=== PATIENT | female | born 1990 | race Hispanic/Latino ===

== ENCOUNTER 2017-01-07 20:25 | Emergency (ER) | payer BC ==
[2017-01-07 21:05] VITALS: BP 189/99; PULSE 94; RESP 18; TEMP 98; O2SAT 100
--- NOTE | 2017-01-07 22:49 | ED PDOC ---
Lower Extremity Pain/Injury Time Seen by Provider: 01/07/17 22:39 Chief Complaint (Nursing): Lower Extremity Problem/Injury Chief Complaint (Provider): right leg pain History Per: Patient Additional Complaint(s): 26-year-old female presents to emergency Department with complaints of right hip pain. Patient states 5 days ago she slipped and fell [place]. Patient felt a pop in her right hip and has had pain since then. Tylenol does help the pain somewhat. Patient able to walk and bear weight but has pain when doing so. She keeps hearing clicking sensation to right hip. Past Medical History Reviewed: Historical Data, Nursing Documentation, Vital Signs Vital Signs: Last Vital Signs Temp 98 F 01/07/17 21:02 Pulse 94 H 01/07/17 21:02 Resp 18 01/07/17 21:02 BP 189/99 H 01/07/17 21:02 Pulse Ox 100 01/07/17 21:02 - Medical History PMH: No Chronic Diseases - Surgical History Other surgeries: bilateral bunionectomies - Family History Family History: States: No Known Family Hx - Living Arrangements Living Arrangements: With Friends/Others - Social History Current smoker - smoking cessation education provided: No Alcohol: None Drugs: Denies - Allergies Allergies/Adverse Reactions: Allergies Allergy/AdvReac Type Severity Reaction Status Date / Time No Known Allergies Allergy Verified 01/07/17 21:02 Wells Criteria for PE - Wells Criteria for Pulmonary Embolism Clinical Signs and Symptoms of DVT: No P.E is #1 Diagnosis, or Equally Likely: No Heart Rate >100: No Immobilization at least 3 days;Surgery previous 4 weeks: No Previous, objectively diagnosed PE or DVT: No Hemoptysis: No Malignancy w/treatment within 6 months, or palliative: No Total Score: 0 Review of Systems ROS Statement: Except As Marked, All Systems Reviewed And Found Negative Musculoskeletal: Positive for: Other (right hip injury) Physical Exam - Reviewed Nursing Documentation Reviewed: Yes Vital Signs Reviewed: Yes - Physical Exam Appears: Positive for: Well, Non-toxic, No Acute Distress Head Exam: Positive for: ATRAUMATIC, NORMAL INSPECTION, NORMOCEPHALIC Skin: Negative for: Rash Eye Exam: Positive for: Normal appearance Cardiovascular/Chest: Positive for: Regular Rate, Rhythm Respiratory: Positive for: Normal Breath Sounds Extremity: Positive for: Other (Full range of motion right hip, mild tenderness to right lateral hip with no ecchymosis or obvious bony deformity, normal distal sensation right lower extremity) - Laboratory Results Urine POC: Negative - ECG O2 Sat by Pulse Oximetry: 100 Pulse Ox Interpretation: Normal Medical Decision Making Medical Decision Makin-year-old female with injury to right hip. Plan: test X-ray right hip and pelvis. X-ray demonstrates no acute fracture or dislocation. Crutches were offered but patient declined. Advised NSAIDs for pain relief and follow-up with orthopedist , referral provided. Disposition - Clinical Impression Clinical Impression: Hip sprain - Patient ED Disposition Is Patient to be Admitted: No Counseled Patient/Family Regarding: Studies Performed, Diagnosis, Need For Followup - Disposition Referrals: Carlos Rico MD [Staff Provider] - Disposition: Routine/Home Disposition Time: 23:33 Condition: STABLE Additional Instructions: Take over the counter tylenol or advil for pain. Follow up with orthopedist on 1-2 days. Instructions: Hip Sprain (ED) Forms: [facility] ([place])
--- NOTE | 2017-01-08 10:08 | RAD ---
PROCEDURE: Right Hip with pelvis Radiographs. HISTORY: trauma COMPARISON: None. FINDINGS: BONES: Normal. No fracture. The pelvic ring appears intact in pubic symphysis. JOINTS: Normal. SOFT TISSUES: Normal. OTHER FINDINGS: None. IMPRESSION: Normal radiographs of right hip and pelvis.
== END 2017-01-07 23:53 | disposition home or self-care (01) ==
LOC: H.ER 20:25
DX: M25.551 Pain in right hip (principal)